=== PATIENT | female | born 1965 | race American Indian/Alaskan Native ===

== ENCOUNTER 2016-08-01 16:20 | Emergency (ER) | payer MEDICARE ==
[2016-08-01] MEDS ORDERED: CATAPRES ONE (21:46)
[2016-08-01] MEDS ORDERED: CATAPRES PO ONE (21:54)
--- NOTE | 2016-08-01 22:22 | Emergency Department Report ---
HPI - General Chief Complaint: Extremity Problem,Nontraumatic Time Seen by Provider: 08/01/16 21:52 - HPI HPI: Patient here complaining of chronic right knee pain that is 8 out of 10. She says she's been diagnosed with arthritis and it accept from time to time right knee pain is 8 out of 10. She is also complaining that she has itching to both her palms and redness. Patient said this started 3 days ago when she ate some pizza and P hilly cheesesteak. Has any coughing or close fluid. Denies any fever or chills. Denies any shortness of breath or chest pain. Patient with elevated blood pressure for which she takes medication. Blood pressure 187/114 in triage. We'll continue to monitor. She is asymptomatic with elevated blood pressure ED Past Medical Hx - Past Medical History Previous Medical History?: Yes Hx Hypertension: Yes Hx GERD: Yes Hx Headaches / Migraines: Yes (MIGRAINES) Hx Psychiatric Treatment: Yes Hx Tuberculosis: Yes Additional medical history: Depression, Left leg cellulitis, - Surgical History Past Surgical History?: No - Family History Family history: hypertension - Social History Smoking Status: Never Smoker Substance Use Type: None - Medications Home Medications: Home Medications Medication Instructions Recorded Confirmed Last Taken Type amLODIPine [Norvasc] 10 mg PO DAILY 04/20/13 12/18/14 07/16/13 History Furosemide [Furosemide] 20 mg PO DAILY 07/16/13 12/18/14 07/14/13 History Potassium Chloride [Klor-Con 10] 10 meq PO DAILY 07/16/13 12/18/14 07/15/13 History Famotidine [Pepcid] 20 mg PO DAILY 12/18/14 12/18/14 Unknown History Loratadine [Claritin] 10 mg PO DAILY 12/18/14 12/18/14 Unknown History Misoprostol [Cytotec] 200 mcg PO DAILY 12/18/14 12/18/14 Unknown History Piroxicam 20 mg PO BID 12/18/14 12/18/14 Unknown History Ciprofloxacin HCl [Ciprofloxacin 500 mg PO Q12H #14 tab 12/19/14 Unknown Rx TAB] ALBUTEROL Inhaler [ProAir HFA 2 puff IH QID PRN #1 inhalation 04/28/16 Unknown Rx Inhaler] Azithromycin [Zithromax TAB] 500 mg PO QDAY #3 tablet 04/28/16 Unknown Rx Prednisone [predniSONE 10 mg 10 mg PO .TAPER #1 tab.ds.pk 04/28/16 Unknown Rx (6-Day Pack, 21 Tabs)] hydrOXYzine HCL [Atarax] 25 mg PO Q6HR PRN #12 tablet 08/01/16 Unknown Rx predniSONE [Deltasone] 20 mg PO QDAY #3 tab 08/01/16 Unknown Rx ED Review of Systems ROS: Stated complaint: BOTH HANDS ITCHING/R KNEE PAIN Other details as noted in HPI Comment: All other systems reviewed and negative Constitutional: denies: chills, fever ENT: denies: ear pain, throat pain, dental pain, hearing loss, congestion Respiratory: no symptoms reported Cardiovascular: denies: chest pain, palpitations, edema, syncope Gastrointestinal: denies: abdominal pain, nausea, vomiting, diarrhea Musculoskeletal: arthralgia. denies: back pain, joint swelling Skin: pruritus Neurological: denies: headache, weakness, numbness, paresthesias, confusion, abnormal gait, vertigo Physical Exam - Physical Exam Vital Signs: Vital Signs 08/01/16 08/01/16 08/01/16 16:44 21:52 21:57 Temperature 98.1 F 98.2 F Pulse Rate 82 69 69 Respiratory 16 20 Rate Blood Pressure 180/113 187/114 Blood Pressure 187/114 [Left] O2 Sat by Pulse 97 97 Oximetry Vital Signs 08/01/16 08/01/16 08/01/16 16:44 21:52 21:57 Temperature 98.1 F 98.2 F Pulse Rate 82 69 69 Respiratory 16 20 Rate Blood Pressure 180/113 187/114 Blood Pressure 187/114 [Left] O2 Sat by Pulse 97 97 Oximetry 08/01/16 22:51 Temperature Pulse Rate 70 Respiratory Rate Blood Pressure Blood Pressure 169/96 [Left] O2 Sat by Pulse Oximetry General: This is a 51-year-old female well-nourished well-developed in no acute distress. Physical Exam: Head: Normocephalic atraumatic Mouth: Moist, no pharyngeal exudate or erythema. Uvula is midline and oral airway is patent. No gingival enlargement or dental tenderness. No facial swelling. No peritonsillar abscesses. Neck: Supple, no C-spine tenderness, no tracheal deviation. Nontender to palpate. no adenopathy Ears: Bilateral TMs pearly robbins. Bilateral EAC without any redness swelling or drainage Eyes: Bilateral pupils equal and reactive to light, bilateral EOM intact. Bilateral sclera and conjunctiva without injection. Normal accommodation Nose: Mucosa moist, normal mucosa. Maxillary and frontal sinus non-tender to palpate. Lungs:Clear to auscultate bilaterally no rhonchi wheezes or rales. Normal work of breathing extremity; No CCE. +2 pulses. No neurovascular compromise. No deformity noted. MSK: Patient with full range of motion to all extremities. Rest 5/5 strength in all extremities. No joint swelling or tenderness. No joint erythema. Cardiovascular: S1-S2, regular rate rhythm. No murmurs. Skin: clean Dry and intact no rash no lesions. Minimal redness noted to the palm sparsely scattered to the dorsal aspect of hand Psych: Normal mood and behavior ED Course Vital Signs 08/01/16 08/01/16 08/01/16 16:44 21:52 21:57 Temperature 98.1 F 98.2 F Pulse Rate 82 69 69 Respiratory 16 20 Rate Blood Pressure 180/113 187/114 Blood Pressure 187/114 [Left] O2 Sat by Pulse 97 97 Oximetry - Reevaluation(s) Reevaluation #1: 08/02/16 04:51 Patient received clonidine 0.2 mg by mouth in emergency room for elevated blood pressure and blood pressure responded well. ED Medical Decision Making - Medical Decision Making ED course: Patient given clonidine 0.2 mg in emergency room for elevated blood pressure. Blood pressure responded well to clonidine. I instructed patient if she is having a flareup of arthritis and I will put her on Ultram. Atarax and steroids for minor allergic reaction from food. Patient was understanding of discharge instruction and discharged home in stable condition with prescription for Atarax and prednisone and to monitor her blood pressure and schedule appointment to see her primary care physician in 2-3 days. Critical care attestation.: If time is entered above; I have spent that time in minutes in the direct care of this critically ill patient, excluding procedure time. ED Disposition Clinical Impression: Arthralgia of right knee Hypertension Qualifiers: Hypertension type: unspecified secondary hypertension Qualified Code(s): I15.9 - Secondary hypertension, unspecified Minor allergic reaction Qualifiers: Encounter type: initial encounter Qualified Code(s): T78.40XA - Allergy, unspecified, initial encounter Disposition: DISCHARGED TO HOME OR SELFCARE Is pt being admited?: No Does the pt Need Aspirin: No Condition: Stable Instructions: Hypertension (ED), Arthralgia (ED), Urticaria (ED) Prescriptions: hydrOXYzine HCL [Atarax] 25 mg PO Q6HR PRN #12 tablet PRN Reason: Itching predniSONE [Deltasone] 20 mg PO QDAY #3 tab Referrals: ROWENA العلي MD [Primary Care Provider] - 2-3 Days Forms: Work/School Release Form(ED)
[2016-08-01 22:52] VITALS: BP 169/96
== END 2016-08-01 22:55 | disposition home or self-care (01) ==
LOC: ED 16:20
DX: T78.40XA Allergy, unspecified, initial encounter (principal); I10 Essential (primary) hypertension; M25.561 Pain in right knee; K21.9 Gastro-esophageal reflux disease without esophagitis; G43.909 Migraine, unspecified, not intractable, without status migrainosus; Z86.11 Personal history of tuberculosis; Y92.9 Unspecified place or not applicable
CPT/HCPCS: 99282

== ENCOUNTER 2017-03-13 22:53 | Emergency (ER) | payer MEDICARE | END 2017-03-14 00:59 | disposition left against medical advice (07) | LOC: ED 22:53 | DX: R21 Rash and other nonspecific skin eruption (principal); Z53.21 Procedure and treatment not carried out due to patient leaving prior to being seen by health care provider ==

== ENCOUNTER 2017-11-25 10:48 | Emergency (ER) | payer MEDICARE ==
[2017-11-25] MEDS ORDERED: NACL 0.9% 1000 ML 1,000 ML IV ONE (12:12)
[2017-11-25] MEDS ORDERED: ZOFRAN IV ONE (12:12)
[2017-11-25] MEDS ORDERED: CATAPRES PO ONE (12:12)
[2017-11-25] MEDS ORDERED: PEPCID IV ONE (12:34)
--- NOTE | 2017-11-25 12:40 | Emergency Department Report ---
ED Abdominal Pain HPI - General Chief Complaint: Abdominal Pain Stated Complaint: NAUSEA Time Seen by Provider: 11/25/17 11:19 Source: patient Mode of arrival: Ambulatory Limitations: No Limitations - History of Present Illness Initial Comments: This is a 52-year-old female nontoxic, well nourished in appearance, no acute signs of distress presents to the ED with c/o of acute on chronic intermittent abdominal pain x3 weeks. Patient stated she has been diagnosed with GERD but last night she was not able to keep anything down and has been having nausea with vomiting. Patient describes vomiting of food content and yellow gastric acid. Patient describes abdominal pain as cramping and sharp diffuse. Patient also has a secondary complaint of chronic neck pain. Patient stated last year she had an injury during a mechanical work to her car. Patient denies any neck stiffness or decreased ROM. Patient denies any new trauma to neck or abdomen. Patient denies any recent travels or long car rides. Patient denies any chest pain, shortness of breathe, fever, chills, headache, back pain, or urinary symptoms. Patient denies any allergies. PMH includes HTN, GERD, migraine headaches. Patient stated that she was not able to take her Norvasc due to vomiting and this her dose today. MD Complaint: abdominal pain -: days(s) (1) Location: diffuse Radiation: none Migration to: no migration Severity: mild Severity scale (0 -10): 8 Quality: cramping, sharp Consistency: constant Improves With: nothing Worsens With: nothing Associated Symptoms: nausea, vomiting. denies: diarrhea, fever, chills, constipation, dysuria, hematemesis, hematochezia, melena, hematuria, anorexia, syncope - Related Data Home Medications Medication Instructions Recorded Confirmed Last Taken amLODIPine [Norvasc] 10 mg PO DAILY 04/20/13 12/18/14 07/16/13 Furosemide 20 mg PO DAILY 07/16/13 12/18/14 07/14/13 Potassium Chloride [Klor-Con 10] 10 meq PO DAILY 07/16/13 12/18/14 07/15/13 Famotidine [Pepcid] 20 mg PO DAILY 12/18/14 12/18/14 Unknown Loratadine [Claritin] 10 mg PO DAILY 12/18/14 12/18/14 Unknown Misoprostol [Cytotec] 200 mcg PO DAILY 12/18/14 12/18/14 Unknown Piroxicam 20 mg PO BID 12/18/14 12/18/14 Unknown Previous Rx's Medication Instructions Recorded Last Taken Type Ciprofloxacin HCl [Ciprofloxacin 500 mg PO Q12H #14 tab 12/19/14 Unknown Rx TAB] ALBUTEROL Inhaler [ProAir HFA 2 puff IH QID PRN #1 inhalation 04/28/16 Unknown Rx Inhaler] Azithromycin [Zithromax TAB] 500 mg PO QDAY #3 tablet 04/28/16 Unknown Rx Prednisone [predniSONE 10 mg 10 mg PO .TAPER #1 tab.ds.pk 04/28/16 Unknown Rx (6-Day Pack, 21 Tabs)] hydrOXYzine HCL [Atarax] 25 mg PO Q6HR PRN #12 tablet 08/01/16 Unknown Rx predniSONE [Deltasone] 20 mg PO QDAY #3 tab 08/01/16 Unknown Rx Ibuprofen [Motrin] 600 mg PO Q8H PRN #30 tablet 11/25/17 Unknown Rx Ondansetron [Zofran Odt] 4 mg PO Q8HR PRN #15 tab.rapdis 11/25/17 Unknown Rx Allergies Allergy/AdvReac Type Severity Reaction Status Date / Time No Known Allergies Allergy Verified 08/01/16 16:49 ED Review of Systems ROS: Stated complaint: NAUSEA Other details as noted in HPI Constitutional: denies: chills, fever Eyes: denies: eye pain, eye discharge, vision change ENT: denies: ear pain, throat pain Respiratory: denies: cough, shortness of breath, wheezing Cardiovascular: denies: chest pain, palpitations Endocrine: no symptoms reported Gastrointestinal: abdominal pain, nausea, vomiting. denies: diarrhea Genitourinary: denies: urgency, dysuria, discharge Musculoskeletal: denies: back pain, joint swelling, arthralgia Skin: denies: rash, lesions Neurological: denies: headache, weakness, paresthesias Psychiatric: denies: anxiety, depression Hematological/Lymphatic: denies: easy bleeding, easy bruising ED Past Medical Hx - Past Medical History Previous Medical History?: Yes Hx Hypertension: Yes Hx GERD: Yes Hx Headaches / Migraines: Yes (MIGRAINES) Hx Psychiatric Treatment: Yes Hx Tuberculosis: Yes Additional medical history: Depression, Left leg cellulitis, - Surgical History Past Surgical History?: Yes Additional Surgical History: hysterectomy. inguinal hernia - Social History Smoking Status: Never Smoker Substance Use Type: None - Medications Home Medications: Home Medications Medication Instructions Recorded Confirmed Last Taken Type amLODIPine [Norvasc] 10 mg PO DAILY 04/20/13 12/18/14 07/16/13 History Furosemide 20 mg PO DAILY 07/16/13 12/18/14 07/14/13 History Potassium Chloride [Klor-Con 10] 10 meq PO DAILY 07/16/13 12/18/14 07/15/13 History Famotidine [Pepcid] 20 mg PO DAILY 12/18/14 12/18/14 Unknown History Loratadine [Claritin] 10 mg PO DAILY 12/18/14 12/18/14 Unknown History Misoprostol [Cytotec] 200 mcg PO DAILY 12/18/14 12/18/14 Unknown History Piroxicam 20 mg PO BID 12/18/14 12/18/14 Unknown History Ciprofloxacin HCl [Ciprofloxacin 500 mg PO Q12H #14 tab 12/19/14 Unknown Rx TAB] ALBUTEROL Inhaler [ProAir HFA 2 puff IH QID PRN #1 inhalation 04/28/16 Unknown Rx Inhaler] Azithromycin [Zithromax TAB] 500 mg PO QDAY #3 tablet 04/28/16 Unknown Rx Prednisone [predniSONE 10 mg 10 mg PO .TAPER #1 tab.ds.pk 04/28/16 Unknown Rx (6-Day Pack, 21 Tabs)] hydrOXYzine HCL [Atarax] 25 mg PO Q6HR PRN #12 tablet 08/01/16 Unknown Rx predniSONE [Deltasone] 20 mg PO QDAY #3 tab 08/01/16 Unknown Rx Ibuprofen [Motrin] 600 mg PO Q8H PRN #30 tablet 11/25/17 Unknown Rx Ondansetron [Zofran Odt] 4 mg PO Q8HR PRN #15 tab.rapdis 11/25/17 Unknown Rx ED Physical Exam - General Limitations: No Limitations General appearance: alert, in no apparent distress - Head Head exam: Present: atraumatic, normocephalic - Eye Eye exam: Present: normal appearance Pupils: Present: normal accommodation - ENT ENT exam: Present: normal exam, mucous membranes moist - Neck Neck exam: Present: normal inspection, full ROM. Absent: tenderness, meningismus, lymphadenopathy - Respiratory Respiratory exam: Present: normal lung sounds bilaterally. Absent: respiratory distress, wheezes, rales, rhonchi, stridor, chest wall tenderness, accessory muscle use, decreased breath sounds, prolonged expiratory - Cardiovascular Cardiovascular Exam: Present: regular rate, normal rhythm, normal heart sounds. Absent: bradycardia, tachycardia, irregular rhythm, systolic murmur, diastolic murmur, rubs, gallop - GI/Abdominal GI/Abdominal exam: Present: soft, tenderness (diffuse), normal bowel sounds. Absent: distended, guarding, rebound, rigid, diminished bowel sounds - Expanded GI/Abdominal Exam Expanded GI/Abdominal exam: Absent: psoas sign, obturator sign, heel tap sign, Gautam's sign, Rovsing's sign, tenderness at Mcburney's Point, ascites - Rectal Rectal exam: Present: deferred - Extremities Exam Extremities exam: Present: normal inspection, full ROM, normal capillary refill. Absent: tenderness, calf tenderness - Back Exam Back exam: Present: normal inspection, full ROM. Absent: tenderness, CVA tenderness (R), CVA tenderness (L), paraspinal tenderness, vertebral tenderness - Neurological Exam Neurological exam: Present: alert, oriented X3, normal gait - Psychiatric Psychiatric exam: Present: normal affect, normal mood - Skin Skin exam: Present: warm, dry, intact, normal color. Absent: rash ED Course Vital Signs 11/25/17 11/25/17 11/25/17 10:59 13:07 13:12 Temperature 98.3 F Pulse Rate 69 60 Respiratory 20 16 Rate Blood Pressure 171/126 194/105 Blood Pressure [Right] O2 Sat by Pulse 99 Oximetry 11/25/17 14:36 Temperature Pulse Rate 60 Respiratory 16 Rate Blood Pressure Blood Pressure 150/105 [Right] O2 Sat by Pulse 99 Oximetry - Reevaluation(s) Reevaluation #1: 11/25/17 12:43 Patient is speaking in full sentences with no signs of distress noted. ED Medical Decision Making - Lab Data Result diagrams: 11/25/17 12:27 11/25/17 12:27 - Medical Decision Making This is a 52-year-old female that presents with diverticulosis and nausea vomiting and HTN. Patient stable was examined by me. There is slight abdominal tenderness. No rebound tenderness. Patient received Catapres in the ED and B/P decreased prior to discharge. Labs obtained. CT abdomen/pelvis with contrast obtained and dictated by the radiologist. Patient received 1L of normal saline, zofran, toradol, and pepcid which patient stated symptoms has resolved and subsided. A by mouth challenge of apple juice had been obtained and patient tolerated well with no nausea vomiting. Patient discharged with Zofran. Patient was instructed to increase hydration. Patient was referred to Follow-up with a primary care/GI doctor in 3-5 days or if symptoms worsen and continue return to emergency room as soon as possible. At time of discharge, the patient does not seem toxic or ill in appearance. No acute signs of distress noted. Patient agrees to discharge treatment plan of care. No further questions noted by the patient. Critical care attestation.: If time is entered above; I have spent that time in minutes in the direct care of this critically ill patient, excluding procedure time. ED Disposition Clinical Impression: Diverticulosis Qualifiers: Diverticulosis site: unspecified location Diverticulosis bleeding: diverticulosis without bleeding Qualified Code(s): K57.90 - Diverticulosis of intestine, part unspecified, without perforation or abscess without bleeding Nausea & vomiting Qualifiers: Vomiting type: unspecified Vomiting Intractability: non-intractable Qualified Code(s): R11.2 - Nausea with vomiting, unspecified Disposition: DC-01 TO HOME OR SELFCARE Is pt being admited?: No Does the pt Need Aspirin: No Condition: Stable Instructions: Ibuprofen (By mouth), Diverticulosis (ED), Acute Nausea and Vomiting (ED), Abdominal Pain (ED) Additional Instructions: Follow-up with a primary care/gastroenterology doctor in 3-5 days or if symptoms worsen and continue return to emergency room as soon as possible. Prescriptions: Ibuprofen [Motrin] 600 mg PO Q8H PRN #30 tablet PRN Reason: Pain Ondansetron [Zofran Odt] 4 mg PO Q8HR PRN #15 tab.rapdis PRN Reason: Nausea Referrals: [facility] [Outside] - 3-5 Days [facility] [Outside] - 3-5 Days PRIMARY MD KALE [Referring] - 3-5 Days ROWENA العلي MD [Primary Care Provider] - 3-5 Days [facility] [Provider Group] - 3-5 Days Forms: Work/School Release Form(ED)
[2017-11-25] MEDS ORDERED: TORADOL IV ONE (12:42)
[2017-11-25 12:45] LABS: Eosinophils # (Auto) 0.3 K/mm3 (0.0-0.4); Eosinophils % (Auto) 7.5 % (0.0-4.3); Monocytes # (Auto) 0.4 K/mm3 (0.0-0.8); Monocytes % (Auto) 9.2 % (0.0-7.3)
[2017-11-25 13:09] LABS: Alanine Aminotransferase 16 units/L (7-56); Albumin 3.8 g/dL (3.9-5); BUN/Creatinine Ratio 14; Bilirubin,Direct < 0.2 mg/dL (0-0.2); Blood Urea Nitrogen 10 mg/dL (7-17); Calcium 9.1 mg/dL (8.4-10.2); Hemolysis Index 15
[2017-11-25 13:34] LABS: Hematocrit 46.5 % (30.3-42.9); Hemoglobin 15.5 gm/dl (10.1-14.3); Mean Corpuscular HGB Conc 33 % (30-34); Mean Corpuscular Hemoglobin 27 pg (28-32); Mean Corpuscular Volume 82 fl (79-97); Platelet Count 139 K/mm3 (140-440); Red Blood Count 5.67 M/mm3 (3.65-5.03); Red Cell Distribution Width 16.4 % (13.2-15.2)
[2017-11-25 13:35] LABS: Basophils % (Auto) 1.2 % (0.0-1.8); Lymphocytes % (Auto) 24.8 % (13.4-35.0)
[2017-11-25 14:37] VITALS: BP 150/105
[2017-11-25 14:49] LABS: Bacteria,Urine 1+ /HPF (Negative); Bilirubin,Urine NEG (Negative); Blood,Urine NEG (Negative); Color,Urine Straw (Yellow); Protein,Urine <15 mg/dL mg/dL (Negative); Urobilinogen,Urine < 2.0 mg/dL (<2.0)
--- NOTE | 2017-11-25 14:57 | Cat Scan Report ---
FINAL REPORT PROCEDURE: CT ABDOMEN PELVIS W CON TECHNIQUE: Computerized axial tomography of the abdomen and pelvis was performed after the IV injection of iodinated nonionic contrast. HISTORY: abdominal pain COMPARISON: No prior studies are available for comparison. FINDINGS: Visualized lower thorax: No significant abnormality. Liver: Normal size and attenuation. Spleen: Normal size and attenuation. Gallbladder and biliary system: Normal. Pancreas: Normal. Adrenals: Normal. Kidneys: There are 2 nonobstructing left renal calculi. The larger calculus in the upper pole measures up to 4 millimeters. No hydronephrosis bilaterally. No ureteral calculi GI tract: There are nonspecific air-fluid levels in the colon, which can be seen with a diarrhea producing illness. The appendix is visualized and does not appear inflamed. There is sigmoid diverticulosis Lymph nodes and mesentery: Normal. Vasculature: Normal. Bladder: Normal. Reproductive organs: Uterus is not identified. Peritoneum: No free fluid. Musculoskeletal structures: There are degenerative disc changes at L5-S1. Other: None. IMPRESSION: There are nonobstructing left renal calculi. Diverticulosis.
== END 2017-11-25 15:22 | disposition home or self-care (01) ==
LOC: ED 10:48
DX: K57.90 Diverticulosis of intestine, part unspecified, without perforation or abscess without bleeding (principal); I10 Essential (primary) hypertension; K21.9 Gastro-esophageal reflux disease without esophagitis; G43.909 Migraine, unspecified, not intractable, without status migrainosus
CPT/HCPCS: 36415; 74177; 80048; 80074; 81001; 83690; 85025; 87086; 96361; 96374; 96375; 99283; J1885; J2405; J7030; Q9967

== ENCOUNTER 2018-12-27 19:23 | Emergency (ER) | payer MEDICARE ==
--- NOTE | 2018-12-27 20:21 | Event Note ---
ED Screening Note ED Screening Note: ABD PAIN EPIGASTRIC CHILLS, NAUSEA, NO VOMITING; NO CONSTIP OR DIARRHEA PMH HTN ASTHMA PSH HYSTER. CSEC LIPOMA REMOVED This initial assessment/diagnostic orders/clinical plan/treatment(s) is/are subject to change based on patients health status, clinical progression and re- assessment by fellow clinical providers in the ED. Further treatment and workup at subsequent clinical providers discretion. Patient/guardian urged not to elope from the ED as their condition may be serious if not clinically assessed and managed. Initial orders include:
[2018-12-27] MEDS ORDERED: ZOFRAN ODT PO ONE (20:24)
--- NOTE | 2018-12-27 20:55 | XRay Report ---
PROCEDURE: XR ABDOMEN 1V AP TECHNIQUE: Abdominal radiograph, single view. HISTORY: ABD PAIN COMPARISONS: None . FINDINGS: Bowel gas pattern: Nonobstructive . Masses or calcifications: None . Bony structures: No significant abnormality . Other: None . IMPRESSION: No acute abnormality. This document is electronically signed by Juan Sutton MD., December 27 2018 08:54:16 PM ET
[2018-12-27 21:27] LABS: Bacteria,Urine 1+ /HPF (Negative); Bilirubin,Urine NEG (Negative); Blood,Urine NEG (Negative); Color,Urine Yellow (Yellow); Mucus,Urine FEW /HPF; Protein,Urine <15 mg/dL mg/dL (Negative)
[2018-12-27] MEDS ORDERED: MORPHINE IV ONE (21:31)
--- NOTE | 2018-12-27 21:35 | Emergency Department Report ---
HPI - General Chief Complaint: Abdominal Pain Time Seen by Provider: 12/27/18 20:19 - HPI HPI: 53-year-old -[place] female presents to the emergency department from home with the complaint of lower mid abdominal pain that has been going on intermittently over the past week. It is currently 8 out of 10 in intensity. She denies any vaginal bleeding or discharge, dysuria, fever, vomiting but has had some nausea. The patient also previously had some upper abdominal discomfort but she took a laxative and some castor oil, had a few good bowel m ovements, and that part is feeling better. Patient also complains of some acute on chronic left lower leg swelling that she has been told is lymphedema versus a chronic cellulitis. The patient tried to see her primary care physician but they were "booked" so she came in to be seen. No recent travel or sick contacts at home. ED Past Medical Hx - Past Medical History Previous Medical History?: Yes Hx Hypertension: Yes Hx GERD: Yes Hx Headaches / Migraines: Yes (MIGRAINES) Hx Psychiatric Treatment: Yes Hx Tuberculosis: Yes Additional medical history: Depression, Left leg cellulitis, - Surgical History Past Surgical History?: Yes Additional Surgical History: hysterectomy. inguinal hernia - Social History Smoking Status: Never Smoker Substance Use Type: None - Medications Home Medications: Home Medications Medication Instructions Recorded Confirmed Last Taken Type amLODIPine [Norvasc] 10 mg PO DAILY 04/20/13 12/18/14 07/16/13 History Furosemide 20 mg PO DAILY 07/16/13 12/18/14 07/14/13 History Potassium Chloride [Klor-Con 10] 10 meq PO DAILY 07/16/13 12/18/14 07/15/13 History Famotidine [Pepcid] 20 mg PO DAILY 12/18/14 12/18/14 Unknown History Loratadine [Claritin] 10 mg PO DAILY 12/18/14 12/18/14 Unknown History Piroxicam 20 mg PO BID 12/18/14 12/18/14 Unknown History miSOPROStol [Cytotec] 200 mcg PO DAILY 12/18/14 12/18/14 Unknown History Ciprofloxacin HCl [Ciprofloxacin 500 mg PO Q12H #14 tab 12/19/14 Unknown Rx TAB] ALBUTEROL Inhaler (OR & NICU) 2 puff IH QID PRN #1 inhalation 10/21/16 Unknown Rx [ProAir HFA Inhaler] Azithromycin [Zithromax TAB] 500 mg PO QDAY #3 tablet 04/28/16 Unknown Rx Prednisone [predniSONE 10 mg 10 mg PO .TAPER #1 tab.ds.pk 04/28/16 Unknown Rx (6-Day Pack, 21 Tabs)] hydrOXYzine HCL [Atarax] 25 mg PO Q6HR PRN #12 tablet 08/01/16 Unknown Rx predniSONE [Deltasone] 20 mg PO QDAY #3 tab 08/01/16 Unknown Rx Ibuprofen [Motrin] 600 mg PO Q8H PRN #30 tablet 11/25/17 Unknown Rx Ondansetron [Zofran Odt] 4 mg PO Q8HR PRN #15 tab.rapdis 11/25/17 Unknown Rx HYDROcodone/APAP 5-325 [[place] 1 each PO Q6HR PRN #10 tablet 12/27/18 Unknown Rx 5/325] Sulfamethoxazole/Trimethoprim 1 each PO BID #6 tablet 12/27/18 Unknown Rx [Bactrim DS TAB] ED Review of Systems ROS: Stated complaint: ABD PAIN/ L LEG EDEMA/NAUSEA Other details as noted in HPI Comment: All other systems reviewed and negative Constitutional: denies: chills, fever Eyes: denies: eye pain, vision change ENT: denies: ear pain, throat pain Respiratory: denies: cough, shortness of breath Cardiovascular: edema (LLE). denies: chest pain Gastrointestinal: abdominal pain, nausea. denies: vomiting Genitourinary: denies: dysuria, discharge Musculoskeletal: myalgia. denies: back pain Skin: denies: rash, lesions Neurological: denies: headache, numbness Physical Exam - Physical Exam Vital Signs: Vital Signs 12/27/18 20:19 Temperature 98 F Pulse Rate 78 Respiratory 18 Rate Blood Pressure 188/119 O2 Sat by Pulse 97 Oximetry Physical Exam: GENERAL: The patient is well-developed well-nourished. HENT: Normocephalic. Atraumatic. Patient has moist mucous membranes. EYES: Extraocular motions are intact. Pupils equal reactive to light bilaterally. NECK: Supple. Trachea is midline. CHEST/LUNGS: Clear to auscultation. There is no respiratory distress noted. HEART/CARDIOVASCULAR: Regular. There is no tachycardia. There is no murmur. ABDOMEN: Abdomen is soft. Lower abdominal tenderness to palpation. No guarding. Patient has normal bowel sounds. Obese habitus. SKIN: Skin is warm and dry. Non-pitting swelling of the LLE. NEURO: The patient is awake, alert, and oriented. The patient is cooperative. The patient has no focal neurologic deficits. The patient has normal speech. MUSCULOSKELETAL: There is no tenderness or deformity. There is no evidence of acute injury. ED Course Vital Signs 12/27/18 20:19 Temperature 98 F Pulse Rate 78 Respiratory 18 Rate Blood Pressure 188/119 O2 Sat by Pulse 97 Oximetry ED Medical Decision Making - Lab Data Result diagrams: 12/27/18 21:36 12/27/18 21:36 - Radiology Data Radiology results: report reviewed, image reviewed interpreted by me: Abdominal x-ray shows nonspecific nonobstructive bowel gas. PROCEDURE: CT ABDOMEN PELVIS W CON TECHNIQUE: Computerized axial tomography of the abdomen and pelvis was performed after the administration of IV iodinated nonionic contrast. CT DOSE LENGTH PRODUCT: 3388.2 mGycm HISTORY: lower abd pain COMPARISONS: November 25, 2017 . FINDINGS: There is mild cardiomegaly. Liver, spleen, pancreas and adrenal glands are within normal limits. Bilateral kidneys demonstrate uniform enhancement without hydronephrosis. 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 Urinary bladder is normally filled with normal outlines. Aorta is of normal caliber. There is no free fluid or free air. Gallbladder is unremarkable. Small bowel loops are within normal. Multiple colonic diverticula are noted without evidence of diverticulitis. Appendix is normal. Vertebral height is normal. A small uncomplicated fat- containing infraumbilical midline ventral hernia is noted measuring about 2 cm. IMPRESSION: No acute intra-abdominal or pelvic pathology. Mild cardiomegaly This document is electronically signed by Nelson Sutton MD., December 27 2018 11:33:40 PM ET Transcribed By: [facility] [place] Dictated By: NELSON SUTTON Electronically Authenticated By: NELSON SUTTON Signed Date/Time: 12/27/18 0705 - Medical Decision Making This patient presents to the emergency department with complaint of some lower abdominal pain. On examination she is mildly tender just below the umbilicus but otherwise abdomen is soft, nondistended and nontoxic in appearance. Abdominal x-ray shows nonspecific nonobstructive bowel gas. CT of the abdomen and pelvis with IV contrast does not show any acute abdominal or pelvic pathol ogy. Patient's labs are mostly unremarkable but urine may show a very mild urinary tract infection. The patient will be discharged home with a small amount of pain medication and a 3 day course of antibiotics. She is instructed to follow-up with her primary care physician and to return to the emergency Department with any worsening of her symptoms or any acute distress. - Differential Diagnosis UTI, colitis, diverticulitis Critical Care Time: No Critical care attestation.: If time is entered above; I have spent that time in minutes in the direct care of this critically ill patient, excluding procedure time. ED Disposition Clinical Impression: Abdominal pain Qualifiers: Abdominal location: lower abdomen, unspecified Qualified Code(s): R10.30 - Lower abdominal pain, unspecified UTI (urinary tract infection) Qualifiers: Urinary tract infection type: acute cystitis Hematuria presence: without hematuria Qualified Code(s): N30.00 - Acute cystitis without hematuria Disposition: TO HOME OR SELFCARE Is pt being admited?: No Condition: Stable Instructions: Urinary Tract Infection in Women (ED), Abdominal Pain (ED) Additional Instructions: Please follow-up with your primary care physician in the next few days. Return to the emergency Department with any worsening of her symptoms or any acute distress. You have been prescribed a medication that is sedating and therefore should not be taken prior to driving, working, and responsible for children and in no way should be mixed with alcohol of any quantity. Prescriptions: Sulfamethoxazole/Trimethoprim [Bactrim DS TAB] 1 each PO BID #6 tablet HYDROcodone/APAP 5-325 [[place] 5/325] 1 each PO Q6HR PRN #10 tablet PRN Reason: Pain Referrals: Primary Care Provider, Your [Other] - 2-3 Days Time of Disposition: 23:45
[2018-12-27 21:42] LABS: Hemoglobin 14.2 gm/dl (10.1-14.3); Mean Corpuscular HGB Conc 34 % (30-34); Mean Corpuscular Volume 82 fl (79-97); Platelet Count 178 K/mm3 (140-440); Red Blood Count 5.09 M/mm3 (3.65-5.03); Red Cell Distribution Width 15.8 % (13.2-15.2)
[2018-12-27 22:15] LABS: BUN/Creatinine Ratio 11; Blood Urea Nitrogen 10 mg/dL (7-17); Hemolysis Index 51
--- NOTE | 2018-12-27 23:35 | Cat Scan Report ---
PROCEDURE: CT ABDOMEN PELVIS W CON TECHNIQUE: Computerized axial tomography of the abdomen and pelvis was performed after the administr ation of IV iodinated nonionic contrast. CT DOSE LENGTH PRODUCT: 3388.2 mGycm HISTORY: lower abd pain COMPARISONS: November 25, 2017 . FINDINGS: There is mild cardiomegaly. Liver, spleen, pancreas and adrenal glands are within normal limits. Bila teral kidneys demonstrate uniform enhancement without hydronephrosis. There is mild degree of malrota tion of right kidney. Urinary bladder is normally filled with normal outlines. Aorta is of normal maryellen iber. There is no free fluid or free air. Gallbladder is unremarkable. Small bowel loops are within n ormal. Multiple colonic diverticula are noted without evidence of diverticulitis. Appendix is normal. Vertebral height is normal. A small uncomplicated fat-containing infraumbilical midline ventral henrán ia is noted measuring about 2 cm. IMPRESSION: No acute intra-abdominal or pelvic pathology. Mild cardiomegaly This document is electronically signed by Juan Sutton MD., December 27 2018 11:33:40 PM ET
[2018-12-27 23:58] VITALS: BP 142/74
== END 2018-12-28 | disposition home or self-care (01) ==
LOC: ED 19:23
DX: N39.0 Urinary tract infection, site not specified (principal); I10 Essential (primary) hypertension; K21.9 Gastro-esophageal reflux disease without esophagitis; G43.909 Migraine, unspecified, not intractable, without status migrainosus; F32.9 Major depressive disorder, single episode, unspecified; Z90.710 Acquired absence of both cervix and uterus; Z79.899 Other long term (current) drug therapy
CPT/HCPCS: 36415; 74018; 74177; 80048; 81001; 83690; 83880; 85027; 87086; 96374; 99285; J2270; Q9967

== ENCOUNTER 2019-10-01 08:41 | Emergency (ER) | payer MEDICARE ==
[2019-10-01 09:21] LABS: Bacteria,Urine 1+ /HPF (Negative); Bilirubin,Urine NEG (Negative); Blood,Urine NEG (Negative); Color,Urine Straw (Yellow); Urobilinogen,Urine < 2.0 mg/dL (<2.0)
[2019-10-01 10:07] LABS: Basophils % (Auto) 0.7 % (0.0-1.8); Eosinophils # (Auto) 0.3 K/mm3 (0.0-0.4); Eosinophils % (Auto) 4.4 % (0.0-4.3); Hematocrit 44.7 % (30.3-42.9); Hemoglobin 14.4 gm/dl (10.1-14.3); Lymphocytes # (Auto) 1.2 K/mm3 (1.2-5.4); Lymphocytes % (Auto) 20.9 % (13.4-35.0); Mean Corpuscular HGB Conc 32 % (30-34); Mean Corpuscular Volume 81 fl (79-97); Monocytes # (Auto) 0.4 K/mm3 (0.0-0.8); Monocytes % (Auto) 6.8 % (0.0-7.3); Red Blood Count 5.54 M/mm3 (3.65-5.03); Red Cell Distribution Width 16.3 % (13.2-15.2)
[2019-10-01] MEDS ORDERED: cloNIDine 0.1 MG TAB PO ONE (10:15)
[2019-10-01] MEDS ORDERED: ONDANSETRON 4 MG/2 ML INJ IV ONE (10:16)
[2019-10-01] MEDS ORDERED: MORPHINE 4 MG/1 ML INJ IV ONE (10:16)
--- NOTE | 2019-10-01 10:19 | Emergency Department Report ---
ED Abdominal Pain HPI - General Chief Complaint: Abdominal Pain Stated Complaint: STOMACH PAIN Time Seen by Provider: 10/01/19 10:08 Source: patient Mode of arrival: Ambulatory Limitations: No Limitations - History of Present Illness Initial Comments: Patient is 54-year-old female with history of hypertension. Patient presented to the ER complaining of lower abdominal pain since yesterday. Patient described her pain as crampy in nature with no radiation. Patient denied any nausea or vomiting. No diarrhea. No urinary symptoms. Patient also denied any fever or chills. Patient denied any chest pain or shortness of breath. Patient found to have a blood pressure of 215/131 in triage. Patient stated that she forgets to take her clonidine last night and this morning. MD Complaint: abdominal pain -: days(s) Location: suprapubic Radiation: none Migration to: no migration Severity: moderate Severity scale (0 -10): 5 Associated Symptoms: denies other symptoms - Related Data Home Medications Medication Instructions Recorded Confirmed Last Taken amLODIPine [Norvasc] 10 mg PO DAILY 04/20/13 12/18/14 07/16/13 Furosemide 20 mg PO DAILY 07/16/13 12/18/14 07/14/13 Potassium Chloride [Klor-Con 10] 10 meq PO DAILY 07/16/13 12/18/14 07/15/13 Famotidine [Pepcid] 20 mg PO DAILY 12/18/14 12/18/14 Unknown Loratadine (Nf) [Claritin] 10 mg PO DAILY 12/18/14 12/18/14 Unknown Piroxicam 20 mg PO BID 12/18/14 12/18/14 Unknown miSOPROStoL [Cytotec] 200 mcg PO DAILY 12/18/14 12/18/14 Unknown Previous Rx's Medication Instructions Recorded Last Taken Type Ciprofloxacin HCl [Ciprofloxacin 500 mg PO Q12H #14 tab 12/19/14 Unknown Rx TAB] Albuterol INH(or & Nicu Only) 2 puff IH QID PRN #1 inhalation 04/28/16 Unknown Rx [ProAir HFA Inhaler] Azithromycin [Zithromax TAB] 500 mg PO QDAY #3 tablet 04/28/16 Unknown Rx Prednisone [predniSONE 10 mg 10 mg PO .TAPER #1 tab.ds.pk 04/28/16 Unknown Rx (6-Day Pack, 21 Tabs)] hydrOXYzine HCL [Atarax] 25 mg PO Q6HR PRN #12 tablet 08/01/16 Unknown Rx predniSONE [Deltasone] 20 mg PO QDAY #3 tab 08/01/16 Unknown Rx Ibuprofen [Motrin] 600 mg PO Q8H PRN #30 tablet 11/25/17 Unknown Rx Ondansetron [Zofran Odt] 4 mg PO Q8HR PRN #15 tab.rapdis 11/25/17 Unknown Rx HYDROcodone/APAP 5-325 [[place] 1 each PO Q6HR PRN #10 tablet 12/27/18 Unknown Rx 5/325] Sulfamethoxazole/Trimethoprim 1 each PO BID #6 tablet 12/27/18 Unknown Rx [Bactrim DS TAB] Allergies Allergy/AdvReac Type Severity Reaction Status Date / Time No Known Allergies Allergy Verified 08/01/16 16:49 ED Review of Systems ROS: Stated complaint: STOMACH PAIN Other details as noted in HPI Comment: All other systems reviewed and negative Constitutional: denies: chills, fever Respiratory: denies: cough, shortness of breath, SOB with exertion, SOB at rest Cardiovascular: denies: chest pain, palpitations Gastrointestinal: abdominal pain. denies: nausea, vomiting, diarrhea, constipation, hematemesis, melena, hematochezia Musculoskeletal: denies: back pain Neurological: denies: headache, weakness, numbness, paresthesias, confusion ED Past Medical Hx - Past Medical History Hx Hypertension: Yes Hx GERD: Yes Hx Headaches / Migraines: Yes (MIGRAINES) Hx Psychiatric Treatment: Yes Hx Tuberculosis: Yes Additional medical history: Depression, Left leg cellulitis, - Surgical History Additional Surgical History: hysterectomy. inguinal hernia - Social History Smoking Status: Never Smoker Substance Use Type: None - Medications Home Medications: Home Medications Medication Instructions Recorded Confirmed Last Taken Type amLODIPine [Norvasc] 10 mg PO DAILY 04/20/13 12/18/14 07/16/13 History Furosemide 20 mg PO DAILY 07/16/13 12/18/14 07/14/13 History Potassium Chloride [Klor-Con 10] 10 meq PO DAILY 07/16/13 12/18/14 07/15/13 History Famotidine [Pepcid] 20 mg PO DAILY 12/18/14 12/18/14 Unknown History Loratadine (Nf) [Claritin] 10 mg PO DAILY 12/18/14 12/18/14 Unknown History Piroxicam 20 mg PO BID 12/18/14 12/18/14 Unknown History miSOPROStoL [Cytotec] 200 mcg PO DAILY 12/18/14 12/18/14 Unknown History Ciprofloxacin HCl [Ciprofloxacin 500 mg PO Q12H #14 tab 12/19/14 Unknown Rx TAB] Albuterol INH(or & Nicu Only) 2 puff IH QID PRN #1 inhalation 04/28/16 Unknown Rx [ProAir HFA Inhaler] Azithromycin [Zithromax TAB] 500 mg PO QDAY #3 tablet 04/28/16 Unknown Rx Prednisone [predniSONE 10 mg 10 mg PO .TAPER #1 tab.ds.pk 04/28/16 Unknown Rx (6-Day Pack, 21 Tabs)] hydrOXYzine HCL [Atarax] 25 mg PO Q6HR PRN #12 tablet 08/01/16 Unknown Rx predniSONE [Deltasone] 20 mg PO QDAY #3 tab 08/01/16 Unknown Rx Ibuprofen [Motrin] 600 mg PO Q8H PRN #30 tablet 11/25/17 Unknown Rx Ondansetron [Zofran Odt] 4 mg PO Q8HR PRN #15 tab.rapdis 11/25/17 Unknown Rx HYDROcodone/APAP 5-325 [[place] 1 each PO Q6HR PRN #10 tablet 12/27/18 Unknown Rx 5/325] Sulfamethoxazole/Trimethoprim 1 each PO BID #6 tablet 12/27/18 Unknown Rx [Bactrim DS TAB] ED Physical Exam - General Limitations: No Limitations General appearance: alert, in no apparent distress - Head Head exam: Present: atraumatic, normocephalic, normal inspection - Eye Eye exam: Present: normal appearance, PERRL - ENT ENT exam: Present: normal exam, normal orophraynx, mucous membranes moist - Neck Neck exam: Present: normal inspection, full ROM. Absent: tenderness, meningismus, lymphadenopathy, thyromegaly - Respiratory Respiratory exam: Present: normal lung sounds bilaterally - Cardiovascular Cardiovascular Exam: Present: regular rate, normal rhythm, normal heart sounds - GI/Abdominal GI/Abdominal exam: Present: soft, normal bowel sounds. Absent: distended, tenderness, guarding, rebound, rigid, organomegaly, mass, bruit, pulsatile mass, hernia - Extremities Exam Extremities exam: Present: normal inspection, full ROM, normal capillary refill - Back Exam Back exam: Present: normal inspection, full ROM. Absent: CVA tenderness (R), CVA tenderness (L), muscle spasm, paraspinal tenderness - Neurological Exam Neurological exam: Present: alert, oriented X3, CN II-XII intact, normal gait, reflexes normal. Absent: motor sensory deficit - Psychiatric Psychiatric exam: Present: normal mood - Skin Skin exam: Present: warm, intact, normal color ED Course Vital Signs 10/01/19 08:51 Temperature 98.2 F Pulse Rate 75 Respiratory 20 Rate Blood Pressure 215/131 O2 Sat by Pulse 96 Oximetry ED Medical Decision Making - Lab Data Result diagrams: 10/01/19 09:08 10/01/19 09:08 - Medical Decision Making Patient is 54-year-old female with history of hypertension. Patient presented to the ER complaining of lower abdominal pain since yesterday. Patient described her pain as crampy in nature with no radiation. Patient denied any nausea or vomiting. No diarrhea. No urinary symptoms. Patient also denied any fever or chills. Patient denied any chest pain or shortness of breath. Patient found to have a blood pressure of 215/131 in triage. Patient stated that she forgets to take her clonidine last night and this morning. Patient received morphine, Zofran and clonidine 0.2 mg. Patient stated that she is feeling much better. CT abdomen and pelvis showed acute diverticulitis with no complication. Patient given prescription for Augmentin and Flagyl and advised to follow-up with her primary doctor in the next 2 to 3 days and to return to the ER if she develop any new symptoms. Critical care attestation.: If time is entered above; I have spent that time in minutes in the direct care of this critically ill patient, excluding procedure time. ED Disposition Clinical Impression: Abdominal pain, Acute diverticulitis Disposition: TO HOME OR SELFCARE Is pt being admited?: No Condition: Stable Instructions: Abdominal Pain (ED), Diverticulitis (ED), Diverticulitis Diet (ED) Referrals: ROWENA العلي MD [Primary Care Provider] - 3-5 Days
[2019-10-01 10:31] LABS: Alanine Aminotransferase 11 units/L (7-56); BUN/Creatinine Ratio 11; Blood Urea Nitrogen 10 mg/dL (7-17); Calcium 9.2 mg/dL (8.4-10.2); Hemolysis Index 13
[2019-10-01 11:18] LABS: Platelet Count 180 K/mm3 (140-440)
--- NOTE | 2019-10-01 14:01 | Cat Scan Report ---
CT ABDOMEN AND PELVIS WITH CONTRAST INDICATION: Unspecified abdominal pain. COMPARISON: CT abdomen and pelvis with contrast from 12/27/2018. TECHNIQUE: Axial, coronal and sagittal CT imaging of the abdomen and pelvis was performed after inje ction of 100 cc Omnipaque [address] scans at this location are performed using CT dose re duction for ALARA by means of automated exposure control. FINDINGS: LOWER CHEST: No significant abnormality. LIVER: No significant abnormality. BILIARY: No significant abnormality. PANCREAS: No significant abnormality. SPLEEN: No significant abnormality. ADRENALS: No significant abnormality. KIDNEYS AND URETERS: Stable nonobstructive 3 mm stone in the left upper renal pole. No additional sig nificant abnormality. GI TRACT: No significant abnormality of the stomach or small bowel. Generalized colonic diverticulosi s is noted with mild thickening of the sigmoid colon and mild to moderate surrounding inflammation. N o other significant abnormality of the colon or appendix. PERITONEUM: No free fluid. No free air. No fluid collection. LYMPH NODES: No significant adenopathy. VASCULATURE: Mild aortic atherosclerosis. No additional significant abnormality. URINARY BLADDER: No significant abnormality. REPRODUCTIVE ORGANS: Prior hysterectomy. No significant abnormality. ADDITIONAL FINDINGS: None. SKELETAL SYSTEM: No acute abnormality. Degenerative changes are seen throughout the spine and pelvis. IMPRESSION: 1. Uncomplicated acute sigmoid diverticulitis. 2. Additional findings as above. Signer Name: Luis Og MD Signed: 10/01/2019 1:57 PM Workstation Name: [id number]
[2019-10-01 14:19] VITALS: BP 139/92
== END 2019-10-01 14:44 | disposition home or self-care (01) ==
LOC: ED 08:41
DX: R10.30 Lower abdominal pain, unspecified (principal); K57.92 Diverticulitis of intestine, part unspecified, without perforation or abscess without bleeding; I10 Essential (primary) hypertension; G43.909 Migraine, unspecified, not intractable, without status migrainosus; K21.9 Gastro-esophageal reflux disease without esophagitis; Z79.899 Other long term (current) drug therapy; Z90.710 Acquired absence of both cervix and uterus
CPT/HCPCS: 36415; 74177; 80053; 81001; 84484; 85025; 93005; 93010; 96374; 96375; 99284; J2270; J2405; Q9967